=== PATIENT | female | born 1975 | race Caucasian/White ===

== ENCOUNTER 2020-03-31 09:51 | Emergency (ER) | payer OTHER, SELFPAY ==
[~2020-03-31] VITALS: Ht 157.5 cm; Wt 70.3 kg
[2020-03-31 09:52] VITALS: BP 157/62; Ht 157.5 cm; Wt 70.3 kg
== END 2020-03-31 10:39 | disposition home or self-care (01) ==
LOC: ED 09:51
DX: U07.1 COVID-19 (principal)
CPT/HCPCS: U0003